=== PATIENT | male | born 2000 | race Caucasian/White ===

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

== ENCOUNTER 2024-03-27 07:08 | Day surgery (SDC) | payer BC ==
[2024-03-27] MEDS ORDERED: droPERidol 5 MG/2 ML SDV IVPUSH PRN (07:27)
[2024-03-27] MEDS ORDERED: Naloxone 0.4 MG/ML SDV IVPUSH PRN (07:27)
[2024-03-27] MEDS ORDERED: fentaNYL 50 MCG/ML SDV IVPUSH PRN (07:27)
[2024-03-27] MEDS ORDERED: Metoclopramide 10 MG/2 ML SDV IVPUSH PRN (07:27)
[2024-03-27] MEDS ORDERED: Ondansetron 4 MG/2 ML SDV IVPUSH PRN (07:27)
[2024-03-27] MEDS ORDERED: Morphine 2 MG/ML SYRINGE IVPUSH PRN (07:27)
[2024-03-27] MEDS ORDERED: HYDROmorphone 1 MG/ML Syringe IVPUSH PRN (07:27)
[2024-03-27] MEDS ORDERED: Albuterol 0.083% 2.5 MG/3 ML Neb Soln NEB PRN (07:27)
[2024-03-27] MEDS ORDERED: Bupivacaine 0.5% 30 ML SDV ONE (07:35)
[2024-03-27] MEDS ORDERED: Lidocaine 1% 20 ML MDV ONE (07:35)
[2024-03-27] MEDS: Lactated Ringers 1,000 ML IV SCH (07:49)
[2024-03-27] MEDS ORDERED: fentaNYL 100 MCG/2 ML SDV ONE (08:11)
[2024-03-27] MEDS ORDERED: Midazolam 1 MG/ML 2 ML SDV ONE (08:17)
[2024-03-27] MEDS ORDERED: Ketamine HCL/NACL, ISO-OSM 50 MG/5 ML Syringe ONE ×2 (08:48→09:04)
[2024-03-27] MEDS ORDERED: propofoL 50 ML ONE ×3 (08:49→09:41)
[2024-03-27] MEDS ORDERED: ceFAZolin 1 GM Vial ONE (09:02)
[2024-03-27] MEDS ORDERED: Water For Injection, Sterile 20 ML ONE (09:02)
[2024-03-27] MEDS ORDERED: ceFAZolin 2 GM Vial ONE (09:03)
[2024-03-27] MEDS ORDERED: Lidocaine 2% 11 ML Jelly Filled Syringe ONE (09:17)
[2024-03-27] MEDS ORDERED: Glycopyrrolate 0.2 MG/ML SDV ONE (09:23)
[2024-03-27] MEDS ORDERED: Phenylephrine HCl In 0.9% NaCl 1 MG/10 ML Syringe ONE (09:26)
[2024-03-27] MEDS ORDERED: ePHEDrine 50 MG/ML SDV ONE (10:57)
== END 2024-03-27 13:50 | disposition home or self-care (01) ==
LOC: MW.SDS 07:08
PROVIDERS: ATTEND Podiatrist Foot & Ankle Surgery
DX: S92.353A Displaced fracture of fifth metatarsal bone, unspecified foot, initial encounter for closed fracture (principal); S92.302A Fracture of unspecified metatarsal bone(s), left foot, initial encounter for closed fracture; I10 Essential (primary) hypertension; E66.9 Obesity, unspecified; Z68.42 Body mass index [BMI] 45.0-49.9, adult; X58.XXXA Exposure to other specified factors, initial encounter
CPT/HCPCS: 28485; 76000; A9270; J0665; J0690; J2250; J2371; J2704; J3010; J3490; J7120; 01480